=== PATIENT | male | born 1985 | race Caucasian/White ===

== ENCOUNTER 2022-05-31 08:01 | Emergency (ER) | payer SELFPAY | END 2022-05-31 09:30 | disposition home or self-care (01) | LOC: NAV ERS 08:01 | DX: S93.402A Sprain of unspecified ligament of left ankle, initial encounter (principal); F17.290 Nicotine dependence, other tobacco product, uncomplicated; W18.42XA Slipping, tripping and stumbling without falling due to stepping into hole or opening, initial encounter ==